=== PATIENT | female | born 1960 | race Hispanic/Latino ===

== ENCOUNTER 2018-08-06 09:55 | Emergency (ER) | payer BC, OTHER ==
[2018-08-06 11:12] LABS: BASO % 0.6 % (0.0-2.0); EOS # 0.1 K/uL (0.0-0.7); EOS % 1.5 % (0.0-4.0); HEMOGLOBIN 12.3 g/dL (12.0-16.0); LYMPH # 1.8 K/uL (1.0-4.3); LYMPH % 27.9 % (20.0-40.0); MEAN CELL VOLUME 87.5 fl (81.0-99.0); MEAN CORPUSCULAR HEMOGLOBIN 29.2 pg (27.0-31.0); MEAN CORPUSCULAR HGB CONC 33.4 g/dL (33.0-37.0); MONO # 0.4 K/uL (0.0-0.8); MONO % 6.8 % (0.0-10.0); NEUT # 4.1 K/uL (1.8-7.0); NEUT % 63.2 % (50.0-75.0); NRBC % 0.1 % (0.0-0.0); RBC 4.22 Mil/uL (3.80-5.20); RED CELL DISTRIBUTION WIDTH 13.5 % (11.5-14.5); WHITE BLOOD COUNT 6.5 K/uL (4.8-10.8)
[2018-08-06 11:27] LABS: ALB/GLOB RATIO 1.3 (1.0-2.1); ALBUMIN 3.9 g/dL (3.5-5.0); ALT/SGPT 42 U/L (9-52); AST/SGOT 29 U/L (14-36); BLOOD UREA NITROGEN 14 mg/dl (7-17); CALCIUM 8.8 mg/dL (8.4-10.2); GFR NON-AFRICAN AMERICAN > 60
--- NOTE | 2018-08-06 11:37 | ED PDOC ---
HPI: General Adult Time Seen by Provider: 08/06/18 10:15 Chief Complaint (Nursing): Chest Pain Chief Complaint (Provider): Throat and chest discomfort History Per: Patient History/Exam Limitations: no limitations Onset/Duration Of Symptoms: Persistent Current Symptoms Are (Timing): Still Present Additional History Per: Patient Additional Complaint(s): 58yo female, with history of hypothyroidsm, comes to ER reporting throat and chest discomfort x few weeks. Patient states she was recently in [place], and was hospitalized there for same complaints. She was evaluated there but unable to discern the reason for her symptoms so she was discharged. Patient reports she has difficulty swallowing at times. She also states she had some episodes of diarrhea in [place], which has largely resolved. No additional medical complaints. PMD: Dr. Sutton Past Medical History Reviewed: Historical Data, Nursing Documentation, Vital Signs Vital Signs: Last Vital Signs Temp 98 F 08/06/18 10:15 Pulse 63 08/06/18 11:11 Resp 15 08/06/18 11:11 BP 119/69 08/06/18 11:11 Pulse Ox 99 08/06/18 11:11 - Medical History PMH: Hyperthyroidism, Mitral Valve Prolapse Denies: Chronic Kidney Disease - Surgical History Surgical History: Cholecystectomy Other surgeries: knee surgery - Family History Family History: States: No Known Family Hx - Social History Current smoker - smoking cessation education provided: No Alcohol: None Drugs: Denies - Home Medications Home Medications: Ambulatory Orders Medication Instructions Recorded Cyanocobalamin [Vitamin B12 1000 1,000 mcg IM DAILY 01/17/ mcg/ml Inj] - Allergies Allergies/Adverse Reactions: Allergies Allergy/AdvReac Type Severity Reaction Status Date / Time No Known Allergies Allergy Verified 08/06/18 10:15 Review of Systems ROS Statement: Except As Marked, All Systems Reviewed And Found Negative Constitutional: Negative for: Fever, Chills ENT: Positive for: Other (throat tightness) Cardiovascular: Positive for: Other (chest tightness) Respiratory: Negative for: Shortness of Breath Gastrointestinal: Negative for: Abdominal Pain Physical Exam - Reviewed Nursing Documentation Reviewed: Yes Vital Signs Reviewed: Yes - Physical Exam Appears: Positive for: Non-toxic, No Acute Distress Head Exam: Positive for: ATRAUMATIC, NORMAL INSPECTION, NORMOCEPHALIC Skin: Positive for: Normal Color, Warm, DRY Eye Exam: Positive for: EOMI, Normal appearance, PERRL ENT: Positive for: Normal ENT Inspection. Negative for: Pharyngeal Erythema, Tonsillar Exudate, Tonsillar Swelling Neck: Positive for: Normal, Painless ROM, Supple Cardiovascular/Chest: Positive for: Regular Rate, Rhythm. Negative for: Tachycardia Respiratory: Positive for: Normal Breath Sounds. Negative for: Respiratory Distress Gastrointestinal/Abdominal: Positive for: Normal Exam, Soft. Negative for: Tenderness, Mass, Guarding, Rebound Back: Positive for: Normal Inspection Extremity: Positive for: Normal ROM Neurological/Psych: Positive for: Awake, Alert, Normal Tone - Laboratory Results Result Diagrams: 08/06/18 10:50 08/06/18 10:50 Lab Results: Total Bilirubin 0.4 mg/dl (0.2-1.3) 08/06/18 10:50 AST 29 U/L (14-36) 08/06/18 10:50 ALT 42 U/L (9-52) 08/06/18 10:50 Alkaline Phosphatase 81 U/L (38-126) 08/06/18 10:50 Total Protein 6.9 G/DL (6.3-8.2) 08/06/18 10:50 Albumin 3.9 g/dL (3.5-5.0) 08/06/18 10:50 Globulin 3.0 gm/dL (2.2-3.9) 08/06/18 10:50 Albumin/Globulin Ratio 1.3 (1.0-2.1) 08/06/18 10:50 - ECG O2 Sat by Pulse Oximetry: 99 (RA) Pulse Ox Interpretation: Normal Medical Decision Making Medical Decision Makiny[place] female with throat and chest tightness rule out cardiac etiology, rule out obstruction or mass Prior records reviewed, patient admitted in 2015 with similar complaints, and was discharged home. Plan: -- Labs -- CT Neck soft tissue -- Pepcid 20mg 1511 CXR FINDINGS: LUNGS: No active pulmonary disease. PLEURA: No significant pleural effusion identified. No pneumothorax apparent. CARDIOVASCULAR: No aortic atherosclerotic calcification present. Normal cardiac size. No pulmonary vascular congestion. OSSEOUS STRUCTURES: No significant abnormalities. VISUALIZED UPPER ABDOMEN: Normal. OTHER FINDINGS: None. IMPRESSION: No active disease. No significant interval change compared to the prior examination(s). CT Neck Soft Tissues FINDINGS: Lack images contrast limits the sensitivity this examination significantly. No definitive pathological finding is appreciated within the supra or infrahyoid neck including the oral cavity, pharynx, larynx and glottis with exception of h eterogeneous appearance of the thyroid gland without focal mass appreciable. Ricco-pharyngeal airway appears patent. There is some obscuring of the oral cavity by artifact related to dental hardware. No definite destructive bony lesion appreciated. Vascular anatomy is suboptimal given lack of intravenous contrast. GLANDS: Parotid and submandibular glands unremarkable. Normal size thyroid gland, with heterogeneous density but no focal mass identifiable. LYMPH NODES: No gross lymphadenopathy identified. CERVICAL SPINE: [id number] multilevel cervical spondylosis identified. No fracture. Straightened curvature noted. OTHER FINDINGS: None. IMPRESSION: Mildly heterogeneous thyroid gland without thyromegaly appreciated. No focal mass identified in this unenhanced CT. Consider follow-up elective thyroid ultrasound for added characterization. Examination otherwise unremarkable. 1600 labs reviewed, TFTS reviewed. discussed results with pt. pt feels better, states no pain. discussed that pt has history of this complaint and was admitted in 2014 for this. instructed pt to follow up with pcp who works at [place]. Scribe Attestation: Documented by Paola Carreon acting as a scribe for Solo Amezquita MD. Provider Attestation: All medical record entries made by the Scribe were at my direction and personally dictated by me. I have reviewed the chart and agree that the record accurately reflects my personal performance of the history, physical exam, medical decision making, and the department course for this patient. I have also personally directed, reviewed, and agree with the discharge instructions and disposition. Disposition - Clinical Impression Clinical Impression: Atypical chest pain - Patient ED Disposition Is Patient to be Admitted: No Counseled Patient/Family Regarding: Studies Performed, Diagnosis, Need For Followup - Disposition Disposition: Routine/Home Disposition Time: 16:05 Condition: IMPROVED Additional Instructions: follow up with Dr Barrios at [place] in 1-2 days for further evaluation return to the ED with any worsening or concerning symptoms Instructions: Chest Pain That Is Not Caused by the Heart (DC) Forms: [employer] (Sinhala)
--- NOTE | 2018-08-06 12:10 | CT ---
Date of service: 08/06/2018 PROCEDURE: CT NECK WITHOUT CONTRAST HISTORY: neck tighness COMPARISON: None available. TECHNIQUE: CT of the neck without intravenous contrast. Coronal and sagittal reformats generated. Radiation dose: Total exam DLP = 270.47 mGy-cm. This CT exam was performed using one or more of the following dose reduction techniques: Automated exposure control, adjustment of the mA and/or kV according to patient size, and/or use of iterative reconstruction technique. FINDINGS: Lack images contrast limits the sensitivity this examination significantly. No definitive pathological finding is appreciated within the supra or infrahyoid neck including the oral cavity, pharynx, larynx and glottis with exception of heterogeneous appearance of the thyroid gland without focal mass appreciable. Ricco-pharyngeal airway appears patent. There is some obscuring of the oral cavity by artifact related to dental hardware. No definite destructive bony lesion appreciated. Vascular anatomy is suboptimal given lack of intravenous contrast. GLANDS: Parotid and submandibular glands unremarkable. Normal size thyroid gland, with heterogeneous density but no focal mass identifiable. LYMPH NODES: No gross lymphadenopathy identified. CERVICAL SPINE: [id number] multilevel cervical spondylosis identified. No fracture. Straightened curvature noted. OTHER FINDINGS: None. IMPRESSION: Mildly heterogeneous thyroid gland without thyromegaly appreciated. No focal mass identified in this unenhanced CT. Consider follow-up elective thyroid ultrasound for added characterization. Examination otherwise unremarkable.
[2018-08-06 12:29] LABS: T3 0.972 nmol/L (1.49-2.60)
--- NOTE | 2018-08-06 13:01 | RAD ---
Date of service: 08/06/2018 HISTORY: Chest pain. COMPARISON: 01/17/2015. TECHNIQUE: Chest PA and lateral views FINDINGS: LUNGS: No active pulmonary disease. PLEURA: No significant pleural effusion identified. No pneumothorax apparent. CARDIOVASCULAR: No aortic atherosclerotic calcification present. Normal cardiac size. No pulmonary vascular congestion. OSSEOUS STRUCTURES: No significant abnormalities. VISUALIZED UPPER ABDOMEN: Normal. OTHER FINDINGS: None. IMPRESSION: No active disease. No significant interval change compared to the prior examination(s).
--- NOTE | 2018-08-06 15:22 | CARD ---
APPROVED REPORT Date of service: 08/06/2018 EKG Measurement Heart [id number] <Conclusion> Normal sinus rhythm Normal ECG
[2018-08-06 17:11] VITALS: BP 120/62; PULSE 68; RESP 16; TEMP 98.1
[2018-08-06 17:19] VITALS: O2SAT 100
== END 2018-08-06 17:00 | disposition home or self-care (01) ==
LOC: H.ER 09:55
DX: R07.89 Other chest pain (principal); I34.1 Nonrheumatic mitral (valve) prolapse; E05.90 Thyrotoxicosis, unspecified without thyrotoxic crisis or storm